=== PATIENT | male | born 1990 | race Caucasian/White ===

== ENCOUNTER 2018-08-25 12:16 | Emergency (ER) | payer BC ==
[~2018-08-25] VITALS: Ht 177.8 cm; Wt 68.0 kg
[2018-08-25] MEDS ORDERED: [UNRECOGNIZED DRUG - OTHER] (12:39)
[2018-08-25] MEDS ORDERED: AMOX1TAB5 PO (15:44)
[2018-08-25] MEDS ORDERED: MEDROLPACK PO (15:44)
[2018-08-25] MEDS ORDERED: CLARITIN-D 241 EACH PO (15:44)
== END 2018-08-25 16:02 | disposition home or self-care (01) ==
LOC: ER 12:16
DX: J06.9 Acute upper respiratory infection, unspecified (principal)